=== PATIENT | female | born 1975 | race Caucasian/White ===

== ENCOUNTER → 2016-09-15 | Outpatient (CLI) | payer MEDICARE ==
[~2016-09-15] MED LIST: ALLERGY INJ; ASPIRIN81 M2 PO; AZELASTINE HCL6 ML OU; CELECOXIB200 MG PO; CHANTIX1 MG BU; GRALISE600 MG PO; HYDROCHLOROTHIA25 MG PO; LISINOPRIL20 MG PO; MS CONTIN30 MG PO; NEXIUM PO; NORETHINDRONE0.35 MG PO; OXYCONTIN20 MG PO; PRAVACHOL20 MG PO; SINGULAIR PO; VITAMIN B-121000 MC1 SL; VITAMIN D-32000 UNI2 PO; ZANAFLEX4 M1 PO
--- NOTE | ~2016-09-15 | EKG ---
PATIENT: CHEYANNE NUNEZ UNIT #: [id number] Ventricular Rate: 76 BPM Atrial Rate: 76 BPM P-R Interval: 150 ms QRS Duration: 88 ms Q-T Interval: 418 ms QTC Calculation(Bezet): 470 ms P Rayle: 28 degrees Calculated R Rayle: 17 degrees Calculated T Rayle: 7 degrees Diagnosis Line: Normal sinus rhythm Diagnosis Line: T wave abnormality, consider anterior ischemia Diagnosis Line: Poor R wave progression questionable lead position Diagnosis Line: or body habitus Diagnosis Line: Abnormal ECG Diagnosis Line: When compared with ECG of 07-SEP-2015 10:22, Diagnosis Line: Nonspecific T wave abnormality now evident in Diagnosis Line: Septal leads Diagnosis Line: Confirmed by BROOKE JACK MD ([id number]) on 09/17/2016 Diagnosis Line: 2:50:42 PM INTERPRETING MD: GUERO BAEZ
[2016-09-15 12:46] LABS: HEMATOCRIT 39.6 % (35.0-45.0); HEMOGLOBIN 13.1 gm/dL (12.0-16.0); MEAN CELL VOLUME 84.5 FL (83-96); MEAN CORPUSCULAR HGB CONC 33.1 g/dL (30-36); RED BLOOD COUNT 4.68 X10e (3.90-5.30); RED CELL DISTRIBUTION WIDTH 15.7 % (11.0-15.5); WHITE BLOOD COUNT 15.2 X10e3 (4.0-10.5)
[2016-09-15 13:51] LABS: BUN/CREATININE RATIO 14.28; CALCIUM SERUM 9.3 mg/dL (8.4-10.2); CREATININE SERUM 0.7 mg/dL (0.6-1.4); GLOM FILT RATE Estimated 106.9 mL/min (>60); POTASSIUM 3.9 mmol/L (3.5-5.1)
== END | disposition home or self-care (01) ==
LOC: CAMB 11:29 → CSUR 12:00
PROVIDERS: Specialist
DX: Z01.818 Encounter for other preprocedural examination (principal); R22.1 Localized swelling, mass and lump, neck
CPT/HCPCS: 36415; 80048; 85027; 93005

== ENCOUNTER → 2016-09-21 | Day surgery (SDC) | payer MEDICARE ==
--- NOTE | ~2016-09-21 | OR ---
Unit #: [id number] #: [id number] Patient: CHEYANNE NUNEZ [id number] [address] [place], [place] [address] [id number] MR#: [id number] NAME: CHEYANNE NUNEZ ROOM: Date of Procedure: 09/21/2016 Admission Date: 09/21/2016 Surgeon: Vince De Souza M.D. : 1975 Attending Physician: Vince De Souza M.D. 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 PROCEDURE PERFORMED Excision of chronic sinus tracts and sebaceous glands extending down to the muscular fascia measuring 15 x 4 cm. ANESTHESIA General endotracheal anesthesia. ESTIMATED BLOOD LOSS 30 mL. INDICATIONS FOR PROCEDURE A 41-year-old female with a history of morbid obesity, who had a very large shoulder hump and a neck with several adipose rolls. In the trigonal space, she had developed chronic infection, which she undergone previous drainage, but she continued to have a draining sinus tracts that were not responsive to antibiotics and local wound care. The patient says She underwent a gastric bypass and has lost nearly 100 pounds and this area is much more accessible, although she still does have some obesity. However due to the chronic draining sinus tracts that was not respond to nonoperative management, we planned on doing a wide excision and closure. DESCRIPTION OF PROCEDURE The patient was admitted to [facility]. [facility], positively identified, and transported to the operating room, and after induction of general endotracheal anesthesia, she received vancomycin IV on a weight based regimen. She was placed in the prone position with appropriate chest rolls and padding at all pressure points and her neck was hyperextended. Her shoulders were then taped back to expose the area. After being prepped and draped, a wedge excision to encompass the entire area was performed. I was able to resect all of the affected tissue en bloc down to the level of the muscular fascia. I then created superior and inferior skin and fat flaps. The area was then irrigated with saline and Betadine. 30 mL of 0.5% Marcaine with epinephrine were infiltrated and then the space was closed in layers using 2-0 Vicryl interrupted Unit #: [id number] #: [id number] Patient: CHEYANNE NUNEZ sutures. I approximated the dermis with 2-0 Vicryl interrupted sutures and then approximated the skin edges with 3-0 nylon running suture. Neosporin and Tegaderm were placed as dressing. Sponges and needle counts were correct x3. The patient tolerated the procedure well and transported to recovery in stable condition. Findings and postoperative instructions were discussed with her mother. Dictated by... Jaqueline Thompson/karol TD: 09/21/2016 14:42 JOB #: [id number] OPERATIVE REPORT Page 1 of 1 X Vince De Souza MD PROCEDURE OPERATIVE NOTE
== END | disposition home or self-care (01) ==
LOC: CSUR 05:30
DX: L72.0 Epidermal cyst (principal); L08.9 Local infection of the skin and subcutaneous tissue, unspecified; K21.9 Gastro-esophageal reflux disease without esophagitis; I10 Essential (primary) hypertension; E66.9 Obesity, unspecified; Z98.890 Other specified postprocedural states; Z88.5 Allergy status to narcotic agent; Z98.84 Bariatric surgery status; Z98.42 Cataract extraction status, left eye; Z68.43 Body mass index [BMI] 50.0-59.9, adult; Z79.82 Long term (current) use of aspirin; Z79.899 Other long term (current) drug therapy; Z79.891 Long term (current) use of opiate analgesic
CPT/HCPCS: 88304; J0330; J2250; J2405; J2710; J3010; J3370